=== PATIENT | female | born 1950 | race Caucasian/White ===

== ENCOUNTER 2021-10-01 20:33 | Emergency (ER) | payer OTHER ==
[2021-10-01 22:12] LABS: SARS-COV-2 RT PCR NEGATIVE (NEGATIVE)
--- NOTE | 2021-10-02 00:04 | EDPHYS ---
Physician Documentation [facility] Name: Renee Ware Age: 70 yrs Sex: Female : 1950 Arrival Date: 10/01/2021 Time: 20:37 Bed 12 Private MD: ED Physician Ryley Degroot HPI: 10/01 21:25 This 70 yrs old Female presents to ER via Ambulatory with complaints of Chest jmm Congestion, Productive Cough. 21:25 Onset: The symptoms/episode began/occurred gradually, 3 day(s) ago. Modifying factors: jmm The symptoms are alleviated by nothing, the symptoms are aggravated by nothing. Associated signs and symptoms: Pertinent positives: rhinorrhea, sore throat, Pertinent negatives: fever. The patient has experienced similar episodes in the past, a few times. Patient denies chest pain or shortness of breath. Historical: - Allergies: 21:22 No Known Allergies; bb - Home Meds: 21:22 None [Active]; bb - PMHx: 21:22 None; bb - PSHx: 21:22 Cholecystectomy; Tonsillectomy; hysterectomy; bb - Immunization history:: Adult Immunizations up to date, Client reports receiving the 2nd dose of the Covid vaccine, Flu vaccine is not up to date. - Social history:: Smoking status: Patient denies any tobacco usage or history of. ROS: 21:25 Constitutional: Negative for fever, chills, and weight loss, Cardiovascular: Negative jmm for chest pain, palpitations, and edema. 21:25 ENT: Positive for sore throat. 21:25 Respiratory: Positive for cough. 21:25 All other systems are negative. Exam: 21:25 Constitutional: This is a well developed, well nourished patient who is awake, alert, jmm and in no acute distress. Head/Face: atraumatic. Eyes: EOMI, no conjunctival erythema appreciated ENT: Moist Mucus Membranes Neck: Trachea midline, Supple Chest/axilla: Normal chest wall appearance and motion. Cardiovascular: Regular rate and rhythm. No edema appreciated Respiratory: Normal respirations, no respiratory distress appreciated Abdomen/GI: Non distended, soft Back: Normal ROM Skin: General appearance color normal MS/ Extremity: Moves all extremities, no obvious deformities appreciated, no edema noted to the lower extremities Neuro: Awake and alert Psych: Behavior is normal, Mood is normal, Patient is cooperative and pleasant Vital Signs: 21:24 BP 146 / 78; Pulse 67; Resp 18; Temp 98.2(O); Pulse Ox 97% on R/A; Weight 83.91 kg (R); bb Height 5 ft. 3 in. (160.02 cm); Pain 0/10; 21:24 Body Mass Index 32.77 (83.91 kg, 160.02 cm) bb MDM: 23:39 Patient medically screened. [facility] 10/02 00:00 Data reviewed: vital signs, nurses notes. Counseling: I had a detailed discussion with yosvany the patient and/or guardian regarding: the historical points, exam findings, and any diagnostic results supporting the discharge/admit diagnosis, lab results, radiology results, the need for outpatient follow up, to return to the emergency department if symptoms worsen or persist or if there are any questions or concerns that arise at home. ED course: Patient is alert and non toxic in appearance in the ED. No signs of resp distress or sepsis. Patient advised to follow up with pcp and otherwise given strict return precautions. Patient understood and agrees with the plan of care. . 10/01 21:24 Order name: COVID-19/FLU A+B (Document "Date of Onset" if Symptomatic); Complete Time: bb 22:23 10/01 22:22 Order name: Chest Single View XRAY bb Administered Medications: No medications were administered Disposition: 03:40 Co-signature as Attending Physician, Ryley Degroot MD. [email or web address] Disposition Summary: 10/02/21 00:04 Discharge Ordered Location: Home [facility] Condition: Stable [facility] Diagnosis - Acute upper respiratory infection, unspecified [facility] Followup: [facility] - With: Private Physician - When: 2 - 3 days - Reason: Recheck today's complaints, Continuance of care, Re-evaluation by your physician Discharge Instructions: - Discharge Summary Sheet [facility] - Upper Respiratory Infection, Adult [facility] Forms: - Medication Reconciliation Form [facility] - Thank You Letter [facility] - Antibiotic Education [facility] - Prescription Opioid Use [facility] Prescriptions: - azithromycin 200 mg/5 mL Oral suspension for reconstitution - take 12.5 milliliter by ORAL route once daily for 5 days; 62.5 milliliter; [facility] Refills: 0, Product Selection Permitted - Bromfed DM 2-30-10 mg/5 mL Oral syrup - take 10 milliliter by ORAL route every 4 hours; 200 milliliter; Refills: 0, jmm Product Selection Permitted - prednisolone 15 mg/5 mL Oral Solution - take 4.75 milliliters by ORAL route 2 times per day for 5 days with food; 48 jmm milliliter; Refills: 0, Product Selection Permitted Signatures: Dispatcher [employer] Obi Miramontes PA PA jmm Ballard, Brenda, RN RN Ryley Bonilla MD MD [email or web address]
--- NOTE | 2021-10-02 00:04 | ER ---
Nurse's Notes [facility] Name: Renee Ware Age: 70 yrs Sex: Female : 1950 Arrival Date: 10/01/2021 Time: 20:37 Bed 12 Private MD: Diagnosis: Acute upper respiratory infection, unspecified Presentation: 10/01 21:18 Chief complaint: Patient states: Began having nasal drainage about 3 days ago, Negative bb home COVID test 1 day ago; Denies fever; Reports congestion and productive cough makes it hard to sleep, hoarse voice today; Reports "I just wanted to get checked out because I have a to go to". Coronavirus screen: congestion, cough unrelated to allergies, runny nose. Ebola Screen: No symptoms or risks identified at this time. Risk Assessment: Do you want to hurt yourself or someone else? Patient reports no desire to harm self or others. Onset of symptoms was October 01, 2021. 21:18 Method Of Arrival: Ambulatory bb 21:18 Acuity: LORRAINE 4 bb 21:24 Initial Sepsis Screen: Does the patient meet any 2 criteria? No. Patient's initial bb sepsis screen is negative. Does the patient have a suspected source of infection? No. Patient's initial sepsis screen is negative. Historical: - Allergies: 21:22 No Known Allergies; bb - Home Meds: 21:22 None [Active]; bb - PMHx: 21:22 None; bb - PSHx: 21:22 Cholecystectomy; Tonsillectomy; hysterectomy; bb - Immunization history:: Adult Immunizations up to date, Client reports receiving the 2nd dose of the Covid vaccine, Flu vaccine is not up to date. - Social history:: Smoking status: Patient denies any tobacco usage or history of. Screenin:23 Abuse screen: Denies threats or abuse. Denies injuries from another. Nutritional bb screening: No deficits noted. Tuberculosis screening: No symptoms or risk factors identified. Fall Risk None identified. Assessment: 23:30 General: Appears in no apparent distress. Behavior is calm, cooperative. Pain: Denies bb pain. Neuro: Level of Consciousness is awake, alert, obeys commands, Oriented to person, place, time, situation. Cardiovascular: Patient's skin is warm and dry. Respiratory: Airway is patent Trachea midline Respiratory effort is even, unlabored, Breath sounds are clear bilaterally. GI: No signs and/or symptoms were reported involving the gastrointestinal system. : No signs and/or symptoms were reported regarding the genitourinary system. EENT: Reports nasal congestion. Derm: Skin is pink, warm \\T\\ dry. Musculoskeletal: No deficits noted. Vital Signs: 21:24 BP 146 / 78; Pulse 67; Resp 18; Temp 98.2(O); Pulse Ox 97% on R/A; Weight 83.91 kg (R); bb Height 5 ft. 3 in. (160.02 cm); Pain 0/10; 21:24 Body Mass Index 32.77 (83.91 kg, 160.02 cm) bb ED Course: 20:37 Patient arrived in ED. 21:22 Triage completed. bb 21:22 Arm band placed on. bb 21:23 Patient has correct armband on for positive identification. bb 22:23 Obi Gatica PA is PHCP. [facility] 22:23 Ryley Degroot MD is Attending Physician. [facility] 22:41 Chest Single View XRAY In Process Unspecified. EDMS 23:14 Obi Gatica PA is PHCP. [facility] 23:14 Ryley Degroot MD is Attending Physician. [facility] 10/02 00:09 Nohemy Crowell, BETTIE is Primary Nurse. bb 00:14 No provider procedures requiring assistance completed. Patient did not have IV access bb during this emergency room visit. Administered Medications: No medications were administered Outcome: 00:04 Discharge ordered by . rosalee 00:12 Discharged to home ambulatory. bb 00:12 Condition: good 00:12 Discharge instructions given to patient, Instructed on discharge instructions, follow up and referral plans. medication usage, Demonstrated understanding of instructions, follow-up care, medications, Prescriptions given X 3. 00:14 Patient left the ED. bb Signatures: Dispatcher [employer] EDMS Obi Gatica PA PA jmm Ballard, Brenda, RN RN Zahra Peterson
[2021-10-02 00:58] VITALS: BP 146/78; TEMP 98.2; O2SAT 97
--- NOTE | 2021-10-02 08:09 | RAD REPORT ---
EXAM DESCRIPTION: RAD - Chest Single View - 10/01/2021 10:42 pm CLINICAL HISTORY: CONGESTION COMPARISON: Two view chest February 2019 TECHNIQUE: AP portable chest image was obtained 10/01/2021 10:42 pm . FINDINGS: Lung volumes are low. Minimal stranding at the right base is likely atelectasis from shall ow inspiration. Acute infiltrate is not suspected. No failure or volume overload. Heart and vasculature are normal. No measurable pleural effusion and no pneumothorax. No acute bony abnormality seen. No acute aortic findings suspected. IMPRESSION: No acute cardiopulmonary process.
== END 2021-10-02 00:14 | disposition home or self-care (01) ==
LOC: ER 20:33
DX: J06.9 Acute upper respiratory infection, unspecified (principal); Z20.822 Contact with and (suspected) exposure to COVID-19
CPT/HCPCS: 0240U; 71045; 99283